=== PATIENT | male | born 1950 | race Caucasian/White ===

== ENCOUNTER 2016-11-01 15:12 | Observation (INO) | payer MEDICARE, BC ==
[~2016-11-01 15:12] MED LIST: ASPIR 8181 MG PO; AVODART0.5 MG PO; BYSTOLIC2.5 MG PO; BYSTOLIC5 M1 PO; CLONAZEPAM0.5 MG PO; HYDROCHLOROTHIA25 MG PO; LIPITOR40 MG PO; LO-DOSE ASPIRIN81 MG PO; LOTREL 10/20 MG1 CAP PO; LOTREL 5-20 MG1 EACH PO; PRADAXA150 MG PO; SPIRIVA18 MCG IH
[2016-11-01] MEDS ORDERED: CLARITIN10 M6 PO (16:36)
[2016-11-01] MEDS ORDERED: BREO ELLIPTA 21 EACH INH (16:36)
[2016-11-01] MEDS ORDERED: CLOBETASOL EMOL15 GM TP (16:37)
[2016-11-01] MEDS ORDERED: TRIAMCINOLONE A15 G2 TP (16:37)
[2016-11-01 16:51] LABS: BASO % 0.7 % (0-2); BASO ABSOLUTE COUNT 0.1 tho/cmm (0.0-0.2); EOS % 1.3 % (0-7); EOSINOPHIL ABSOLUTE COUNT 0.2 tho/cmm (0.0-0.7); HCT-HEMATOCRIT 48.4 % (36.0-53.5); HGB-HEMOGLOBIN 16.2 gm/dl (13.5-17.0); IMMATURE GRANULOCYTES ABSOLUTE 0.04 tho/cmm (0-0.03); IMMATURE GRANULOCYTES PERCENT 0.3 % (0-0.3); LYMPH % 22.5 % (20-45); LYMPH ABSOLUTE COUNT 2.7 tho/cmm (0.8-4.5); MCH (MEAN CORPUSCULAR HGB) 30.3 pg (28.0-32.0); MCHC MEAN CORPUSCULAR HGB CONC 33.5 % (32.0-36.0); MCV (MEAN CELL VOLUME) 90.5 fl (82.0-96.0); MEAN PLATELET VOLUME 10.9 cmc (9.4-12.4); MONO % 9.3 % (0-12); MONOCYTE ABSOLUTE COUNT 1.1 tho/cmm (0.0-1.2); NEUTROPHILS % 65.9 % (40-80); PLATELET COUNT 219 tho/cmm (150-450); RED BLOOD COUNT 5.35 mil/cmm (4.40-5.70); RED CELL DISTRIBUTION WIDTH 13.8 % (12.4-16.4); WHITE BLOOD COUNT 12.2 tho/cmm (4.0-10.0)
[2016-11-01 17:42] LABS: ANION GAP 13 mmol/L (0-20); BLOOD UREA NITROGEN 21 mg/dl (6-24); CALCIUM 9.2 mg/dl (8.5-10.5); CARBON DIOXIDE-VENOUS 27 mmol/L (22-32); CHLORIDE 105 mmol/l (96-110); CREATININE 1.02 mg/dl (0.60-1.30); GLUCOSE 119 mg/dL (70-110); SODIUM 141 mmol/L (135-145); eGFR VALUE FOR BLACK 88 mL/Min
[2016-11-01 17:44] LABS: POTASSIUM 4.1 mmol/L (3.7-5.1)
[2016-11-02] MEDS ORDERED: LOTREL 5-10 MG1 EACH PO (17:36)
== END 2016-11-02 18:26 ==
LOC: EDMED 15:12 → CAR1 19:45
PROVIDERS: Emergency Medicine; ADMIT Internal Medicine Cardiovascular Disease
PROC: 5A2204Z Restoration of Cardiac Rhythm, Single (ICD-10-PCS; principal; 2016-11-02)
DX: I48.0 Paroxysmal atrial fibrillation (principal); I10 Essential (primary) hypertension; M19.90 Unspecified osteoarthritis, unspecified site; J44.9 Chronic obstructive pulmonary disease, unspecified; K21.9 Gastro-esophageal reflux disease without esophagitis; E78.5 Hyperlipidemia, unspecified; G47.33 Obstructive sleep apnea (adult) (pediatric); Z79.899 Other long term (current) drug therapy; Z88.8 Allergy status to other drugs, medicaments and biological substances; Z87.891 Personal history of nicotine dependence; Z82.49 Family history of ischemic heart disease and other diseases of the circulatory system; Z98.890 Other specified postprocedural states
CPT/HCPCS: A9500; G0378; J1650; J2785; J7030